=== PATIENT | male | born 1990 | race Hispanic/Latino ===

== ENCOUNTER 2016-12-13 07:02 | Observation (INO) | payer SELFPAY ==
[2016-12-13] MEDS ORDERED: ONDANSETRON HCL 4 MG/2 ML VIAL ONE (07:27)
[2016-12-13] MEDS ORDERED: KETOROLAC TROMETHAMINE 30 MG/ML VIAL ONE (07:27)
[2016-12-13] MEDS ORDERED: HYDROmorphone HCL 1 MG/ML SYR ONE ×3 (07:27→08:43)
--- NOTE | 2016-12-13 08:25 | CT REPORT ---
HISTORY: Acute left flank pain COMPARISON: None. TECHNIQUE: This examination was performed using automated exposure control, adjustment of mA or kV according to patient size, and/or use of iterative reconstruction technique. Axial contiguous images of the abdome n and pelvis were obtained without oral or IV contrast, coronal reformat images also performed. FINDINGS: At the left UVJ there is a small, 2 x 2 mm stone. There is mild hydroureter. There is mild hydronephr osis on the left. There is no perinephric fatty stranding. No renal stones on either side. The unenhanced portions of the liver, gallbladder, pancreas, spleen, and adrenal glands appear normal given the lack of contrast. The lung bases are clear. The bowel is unremarkable given the lack of co ntrast. The appendix is normal. It is located in the midline. There is no free air or free fluid. No adenopathy, free fluid, or free air. There is normal alignment to the lower thoracic and lumbar spine . IMPRESSION: 2 x 2 mm left ureterovesical junction stone causing mild hydroureter and left hydronephrosis. No othe r stones. Final Electronic Signature: This report was electronically signed by Alex Ruiz MD on 12/13/2016 8 :23 AM. pedro /
[2016-12-13] MEDS ORDERED: HOME MEDICATION LIST NEEDED 1 EA EACH MC ONE (08:32)
[2016-12-13] MEDS ORDERED: ONDANSETRON HCL 4 MG/2 ML VIAL IV PRN (08:37)
[2016-12-13] MEDS ORDERED: HYDROmorphone HCL PCA 6 MG/30 ML PCA.VIAL IV PRN (08:41)
[2016-12-13 08:53] LABS: BASOPHIL# 0.1 X 10^3uL (0.0-0.1); BASOPHILS 1.4 % (0.0-2.0); EOSINOPHILS 4.8 % (0.0-6.0); EOSINOPHILS# 0.4 X 10^3uL (0.0-0.4); HEMATOCRIT 49.2 % (42.0-54.0); HEMOGLOBIN 17.2 g/dL (14.0-18.0); MEAN CELL VOLUME 81.9 fL (80.0-100.0); MEAN CORPUS. HGB CONCENTRATION 34.9 g/dL (32.0-36.0); MEAN CORPUSCULAR HEMOGLOBIN 28.6 pg (29.0-35.0); MEAN PLATELET VOLUME 9.9 fL (7.4-10.4); MONOCYTES 8.9 % (2.0-10.0); MONOCYTES# 0.8 X 10^3uL (0.2-1.0); NEUTROPHILS 41.9 % (54.0-75.0); NEUTROPHILS# 3.7 X 10^3uL (2.6-6.7); PLATELET COUNT 301 X 10^3uL (130-440); RED BLOOD COUNT 6.01 X 10^6uL (4.20-6.10); RED CELL DISTRIBUTION WIDTH 14.4 % (11.5-14.5); WHITE BLOOD COUNT 8.9 X 10^3uL (3.9-10.7)
[2016-12-13 09:03] LABS: BLOOD UREA NITROGEN 11 mg/dL (9-20); CALCIUM 9.3 mg/dL (8.4-10.2); CHLORIDE 102 mmol/L (98-107); EST GLOMERULAR FILTRATION RATE > 60 mL/min; GLUCOSE 111 mg/dL (70-100); POTASSIUM 3.2 mmol/L (3.5-5.1); SODIUM 140 mmol/L (137-145)
--- NOTE | 2016-12-13 09:15 | ER PHYSICIAN DOCUMENTATION ---
Physician Documentation [facility] Name:Rohan Cabrera Age:26 yrs Sex:Male :1990 Arrival Date:12/13/2016 Time:07:02 Bed5 Private MD: Seng Aquino Disposition: 12/13 08:49 Chart complete. cd Disposition: 12/13/16 08:31 Admit ordered for Oswaldo Connolly. Preliminary diagnosis is Ureterolithiasis - Renal Colic - : with Intractable Pain. - Bed requested for Medical/Surgical. - Condition is Fair. - Problem is new. - Symptoms are unchanged. 23 HR OBS Yes HPI: 07:15 This 26 yrs old Male presents to ER with complaints of Abdominal Pain - Left. cd 07:15 The patient presents with abdominal pain in the left lower quadrant, and left flank. cd Onset: The symptoms/episode began/occurred acutely, this morning, at 03:00. The symptoms radiate to the left flank. Associated signs and symptoms: Pertinent positives: nausea, Pertinent negatives: diarrhea, dysuria, fever, hematuria, vomiting. The symptoms are described as sharp, waxing/waning. Severity of pain: At its worst the pain was severe in the emergency department the pain is unchanged. The patient has not experienced similar symptoms in the past. 07:21 Risk factors for AAA: none. Risk factors for testicular torsion: none. cd Historical: - Allergies: No known drug Allergies; No known drug Allergies; - Home Meds: 1. None 2. None - PMHx: None; None; - PSHx: None; None; - Ebola Screening: : Patient denies exposure to infectious person. Patient denies travel to an Ebola-affected area in the 21 days before illness onset. . - The history from nurses notes was reviewed: and I agree with what is documented. ROS: 07:16 Cardiovascular: Negative for chest pain, palpitations, edema and pleuritic pain. cd Respiratory: Negative for shortness of breath, dyspnea on exertion, cough, sputum production, wheezing, hemoptysis and pleuritic chest pain. 07:16 : Negative for injury, bleeding, discharge, swelling, dysuria, frequency or urgency. cd 07:16 Constitutional: Positive for poor PO intake, Negative for chills, fever. 07:16 Abdomen/GI: Positive for abdominal pain, nausea, anorexia, Negative for vomiting, diarrhea, abdominal distension, hematemesis, black/tarry stool, rectal bleeding. 07:16 Back: Positive for pain at rest, of the left mid back. 07:16 All other systems are negative. Exam: 07:17 ENT: Nares patent. No nasal discharge, no septal abnormalities noted. Tympanic cd membranes are normal and external auditory canals are clear. Oropharynx with no redness, swelling, or masses, exudates, or evidence of obstruction, uvula midline. Mucous membranes dry Skin: Warm, dry with normal turgor. Normal color with no rashes, no lesions, and no evidence of cellulitis. MS/ Extremity: Pulses equal, no cyanosis. Neurovascular intact. Full, normal range of motion. 07:17 Neuro: Awake and alert, GCS 15, oriented to person, place, time, and situation. Cranial nerves II-XII grossly intact. Motor strength 5/5 in all extremities. Sensory grossly intact. Cerebellar exam normal. Normal gait. 07:17 Constitutional: The patient appears alert, awake, non-diaphoretic, non-toxic, well developed, well nourished, anxious, in obvious distress, severely distressed. 07:17 Cardiovascular: Rate: normal, Rhythm: regular, Pulses: no pulse deficits are appreciated, Heart sounds: normal. 07:17 Respiratory: the patient does not display signs of respiratory distress, Respirations: normal, no acute changes, Breath sounds: are normal, clear throughout. 07:17 Abdomen/GI: Inspection: abdomen appears normal, Bowel sounds: normal, Palpation: severe abdominal tenderness, in the posterior aspect of left lateral abdomen, left upper quadrant and left lower quadrant, Rectal exam: the exam is deferred, Indicators: McBurney's point is not tender, Phan's sign is negative. 07:17 Back: pain, that is severe, of the left mid back, CVA tenderness, that is severe, is noted on the left. 07:17 : CVA tenderness, on the left, Rectal exam: is not applicable. Vital Signs: 07:04 BP 127 / 78; Pulse 77; Pulse Ox 97% on R/A; Pain 10/10; rh 07:33 Pain 2/10; rh 08:00 BP 130 / 86; Pulse 59; Pulse Ox 96% on 2 lpm NC; rh 08:02 Pain 9/10; rh 08:19 Pain 0/10; rh 08:30 BP 136 / 94; Pulse 80; Pulse Ox 95% ; rh 09:00 BP 110 / 66; rh MDM: 07:10 Patient medically screened. 07:15 Data interpreted: Pulse oximetry: on room air is 97 %. Interpretation: normal. 07:19 Differential diagnosis: Pyelonephritis, Ureterolithiasis, urinary tract infection. 07:20 Data reviewed: vital signs, nurses notes, old medical records, and as a result, I will cd continue to observe the patient, administer IV fluids, NS bolus, NS maintenence, prescribe pain medication, Dilaudid, Toradol. 08:46 Counseling: I had a detailed discussion with the patient and/or guardian regarding: the cd historical points, exam findings, and any diagnostic results supporting the discharge/admit diagnosis, lab results, radiology results, the need for further work-up and treatment in the hospital. 08:49 Response to treatment: the patient's symptoms have mildly improved after treatment, cd pain continues to recur in spite of IV Dilaudid boluses. He has a 2 mm obstructing urolith at the left UVJ with mild hydronephrosis. He will require admission for pain control.. Physician consultation: Oswaldo Connolly MD was called at 08:45, was contacted at 08:46, regarding admission, to the floor, consult, patient's condition, need to evaluate the patient as soon as possible, and will see patient in inpatient room, shortly, later today. Admission orders: after a detailed discussion of the patient's condition and case, the admit orders are written by me. 12/13 09:05 Order name: BASIC METABOLIC PANEL; Complete Time: 09:29 EDMS 12/13 09:19 Interpretation: Normal Except: POTASSIUM 3.2; GLUCOSE 111; Hypokalemia. 12/13 09:06 Order name: CBC AUTO DIF, MDIF/RMOR IF IND; Complete Time: 09:29 EDMS 12/13 09:19 Interpretation: Normal. 12/13 08:28 Order name: CAT SCAN; ABD/[place] [id number]; Complete Time: 09:29 EDMS 12/13 09:19 Interpretation: Abnormal: See Report. 12/13 07:11 Order name: I & O; Complete Time: 07:34 12/13 07:11 Order name: NPO; Complete Time: 07:34 12/13 07:11 Order name: Pulse Ox Continuous; Complete Time: 07:34 12/13 07:11 Order name: Urine Strainer 12/13 07:40 Order name: Oxygen; Complete Time: 07:40 rh Dispensed Medications: 07:22 Drug: NS 0.9% 1000 ml; Route: IV; Rate: bolus; Site: right antecubital; rh 08:30 Follow up: IV Status: Completed infusion; IV Intake: 1000ml rh 07:22 Drug: Dilaudid 1 mg; Route: IVP; Site: right antecubital; rh 07:33 Follow up: Response: Pain is decreased rh 07:22 Drug: Toradol 30 mg; Route: IVP; Site: right antecubital; rh 07:33 Follow up: Response: Pain is decreased rh 07:22 Drug: Zofran 4 mg; Route: IVP; Infused Over: 2 mins; Site: right antecubital; rh 07:34 Follow up: Response: Pain is decreased rh 08:02 Drug: Dilaudid 1 mg; Route: IVP; Site: right antecubital; rh 08:20 Follow up: Response: Pain is decreased rh 08:30 Drug: NS 0.9% 1000 ml; Route: IV; Rate: bolus; Site: right antecubital; rh 09:13 Follow up: IV Status: Completed infusion; IV Intake: 1000ml rh 08:34 Drug: Dilaudid 0.5 mg; Route: IVP; Site: right antecubital; rh 09:13 Follow up: Response: Pain is decreased rh Point of Care Testing: Urine Dip: 07:31 pH: 5.5; ; Specific [place]: 1.030; Ketones: Negative; Glucose: Negative; Protein: rh Positive (+); Leukocytes: Negative; Nitrite: Negative ; Blood: Moderate (++); Bilirubin: Negative ; Urobilinogen: Normal Signatures: Seng Robles MD MD cd Hofsess, Rachel
--- NOTE | 2016-12-13 09:15 | ER NURSING DOCUMENTATION ---
Nurse's Notes [facility] Name:Rohan Cabrera Age:26 yrs Sex:Male :1990 Arrival Date:12/13/2016 Time:07:02 Bed5 Private MD: Diagnosis:Ureterolithiasis - Renal Colic-: with Intractable Pain Presentation: 12/13 07:04 Presenting complaint: Patient states: pt has had left flank pain since 3 AM. pt is rh passing in room. Transition of care: patient was not received from another setting of care. 07:04 Method Of Arrival: Private Vehicle rh 07:11 Acuity: [place] 2 rh Triage Assessment: 07:04 General: Appears uncomfortable, Behavior is cooperative. Pain: Complains of pain in rh anterior aspect of left lateral abdomen, posterior aspect of left lateral abdomen and left lower quadrant Pain currently is 10 out of 10 on a pain scale. Pain began 4 hours ago. Cardiovascular: No deficits noted. Respiratory: No deficits noted. GI: Abdomen is non- distended Abd is soft X 4 quads Abdomen is tender to palpation in anterior aspect of left lateral abdomen, posterior aspect of left lateral abdomen and left lower quadrant. : Denies burning with urination, urinary frequency, pt states he feels like he has to defecate but can not. Historical: - Allergies: No known drug Allergies; No known drug Allergies; - Home Meds: 1. None 2. None - PMHx: None; None; - PSHx: None; None; - Ebola Screening: : Patient denies exposure to infectious person. Patient denies travel to an Ebola-affected area in the 21 days before illness onset. . - The history from nurses notes was reviewed: and I agree with what is documented. Screenin:40 Abuse screen: Denies threats or abuse. Denies injuries from another. Nutritional rh screening: No deficits noted. Assessment: 08:02 General: pt is moaning again. . rh 13:19 General: All nursing charting done by Roseann martin Vital Signs: 07:04 BP 127 / 78; Pulse 77; Pulse Ox 97% on R/A; Pain 10/10; rh 07:33 Pain 2/10; rh 08:00 BP 130 / 86; Pulse 59; Pulse Ox 96% on 2 lpm NC; rh 08:02 Pain 9/10; rh 08:19 Pain 0/10; rh 08:30 BP 136 / 94; Pulse 80; Pulse Ox 95% ; rh 09:00 BP 110 / 66; rh ED Course: 07:04 Patient arrived in ED. lm3 07:04 Valuables Remains with patient Patient has correct armband on for positive rh identification. Placed in gown. Bed in low position. Pulse ox on. 07:09 Roseann Saenz RN is Primary Nurse. st 07:10 Seng Robles MD is Attending Physician. cd 07:11 Triage completed. rh 07:22 Inserted peripheral IV: 20 gauge in right antecubital area and blood collected. rh 07:31 Urine collected. Voided. rh 07:40 Oxygen Oxygen administration via nasal cannula @ 2L/min. rh 08:[address] ms 08:[address] ms 08:30 Oswaldo Connolly MD is Admitting Physician. cd Administered Medications: 07:22 Drug: NS 0.9% 1000 ml; Route: IV; Rate: bolus; Site: right antecubital; rh 08:30 Follow up: IV Status: Completed infusion; IV Intake: 1000ml rh 07:22 Drug: Dilaudid 1 mg; Route: IVP; Site: right antecubital; rh 07:33 Follow up: Response: Pain is decreased rh 07:22 Drug: Toradol 30 mg; Route: IVP; Site: right antecubital; rh 07:33 Follow up: Response: Pain is decreased rh 07:22 Drug: Zofran 4 mg; Route: IVP; Infused Over: 2 mins; Site: right antecubital; rh 07:34 Follow up: Response: Pain is decreased rh 08:02 Drug: Dilaudid 1 mg; Route: IVP; Site: right antecubital; rh 08:20 Follow up: Response: Pain is decreased rh 08:30 Drug: NS 0.9% 1000 ml; Route: IV; Rate: bolus; Site: right antecubital; rh 09:13 Follow up: IV Status: Completed infusion; IV Intake: 1000ml rh 08:34 Drug: Dilaudid 0.5 mg; Route: IVP; Site: right antecubital; rh 09:13 Follow up: Response: Pain is decreased rh Point of Care Testing: Urine Dip: 07:31 pH: 5.5; ; Specific [place]: 1.030; Ketones: Negative; Glucose: Negative; Protein: rh Positive (+); Leukocytes: Negative; Nitrite: Negative ; Blood: Moderate (++); Bilirubin: Negative ; Urobilinogen: Normal Intake: 08:30 IV: 1000ml; Total: 1000ml. rh 09:13 IV: 1000ml; Total: 2000ml. rh Outcome: 08:31 Decision to Admit by Provider. cd 09:14 Admitted to Med/surg accompanied by nurse, via stretcher, with oxygen. rh 09:14 Condition: stable 09:14 Report given to Nadiya RN 09:14 Instructed on need to admit 09:14 Patient left the ED. Signatures: Roseann Saenz, Seng Caro RN, MD MD cd Strickland, Mary ms Hofsess, Rachel Gwendolyn Pemberton
[2016-12-13] MEDS: NORMAL SALINE 1,000 ML IV SCH ×2 (09:43→17:08)
[2016-12-13] MEDS ORDERED: MORPHINE SULFATE 2 MG/ML SYR IV PRN (11:28)
[2016-12-13] MEDS: NALOXONE HCL 0.4 MG/ML VIAL IV PRN ×2 (11:37→11:57)
[2016-12-13] MEDS ORDERED: KETOROLAC TROMETHAMINE 30 MG/ML VIAL IV PRN (13:00)
[2016-12-13] MEDS: POTASSIUM CHLORIDE ER 10 MEQ TABLET PO SCH (13:24)
[2016-12-13] MEDS: TAMSULOSIN HCL 0.4 MG CAPSULE PO SCH (16:41)
[2016-12-13] MEDS ORDERED: NAPROXEN 250 MG TABLET PO SCH (17:30)
[2016-12-13 23:16] VITALS: BP 126/76; TEMP 98; O2SAT 95
[2016-12-14 02:38] VITALS: PULSE 70; RESP 14
[2016-12-14] MEDS: NORMAL SALINE 1,000 ML IV SCH (06:00)
[2016-12-14] MEDS ORDERED: DOCUSATE SODIUM 100 MG CAPSULE PO ONE (06:08)
[2016-12-14] MEDS ORDERED: NAPROXEN 250 MG TABLET PO ONE (06:08)
[2016-12-14] MEDS ORDERED: NAPROXEN 250 MG TABLET PO SCH (07:30)
--- NOTE | 2016-12-14 07:44 | HISTORY & PHYSICAL ---
DATE OF ADMISSION: 12/13/16 ATTENDING PHYSICIAN: Oswaldo Connolly MD HISTORY OF PRESENT ILLNESS: This previously healthy 26-year-old gentleman developed some intermittent left lower quadrant and left flank pain yesterday afternoon. It was tolerable until 3:00 a.m. this morning when it became very severe. It was associated with some nausea but no vomiting, fever or diarrhea. He had no gross hematuria, but when he came to the Emergency Department this morning, he was found to have a 2 mm left ureteral stone at the UPJ. He did not get adequate relief with a total of 2 mg of IV Dilaudid in the Emergency Department so was admitted for pain control. PAST MEDICAL HISTORY: Generally healthy. No chronic illnesses. MEDICATIONS: None. ALLERGIES: No known drug allergies. 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 He lives in [facility]. During the work here, he is staying at the [facility] with a roommate who speaks Swazi who accompanied the patient today. PHYSICAL EXAMINATION VITAL SIGNS: Blood pressure 120/89, pulse 66, respiratory rate 14 and O2 saturation 95% on 2 liters. His temperature is not recorded yet. GENERAL: When I evaluated him he was pain free, but had been in great distress in the Emergency Department. He was alert and oriented x3. HEENT: Oral mucosa was moist. LUNGS: Clear/ HEART: Regular rate and rhythm with no murmur. ABDOMEN: Soft, nontender. BACK: No costovertebral angle tenderness of flank tenderness. EXTREMITIES: Without edema. LABORATORY DATA: Initial white count was 8,900 with 42% neutrophils and 43% lymphs. Hemoglobin was 17. Hematocrit 49 and platelets 301,000. Sodium was 140 , potassium 3.2 and chloride 102. CO2 was 23 and his creatinine was 1.0. IMAGING: Patients CT of the abdomen and pelvis showed a 2 mm left UVJ ureteral stone with some mild hydroureter and left hydronephrosis. No other stones or abnormalities. IMPRESSION 1. Two millimeter left ureteral stone with intractable pain initially. Doing better after admission initially, but then had a flare in the late afternoon. 2. Hypokalemia of uncertain etiology. PLAN: I placed the patient on Tamsulosin 0.4 mg daily and getting him IV fluids. Initially he became too sedated with the Dilaudid and required Narcan. His Dilaudid [employer] was stopped then, and he is now using either IV Morphine 1 mg q.hour PRN and/or Oxycodone 5 mg p.o. This is being supplemented with Aleve 500 mg p.o. b.i.d. He received Toradol in the Emergency Department and it was not much help. We are straining his urine. It is likely that he should be able to pass the stone on his own. If his pain can be adequately controlled tomorrow on the Oxycodone I will send him out on that. CAROL
[2016-12-14] MEDS ORDERED: POLYETHYLENE GLYCOL 3350 17 GM POWD.PACK PO PRN (08:05)
[2016-12-14] MEDS: TAMSULOSIN HCL 0.4 MG CAPSULE PO SCH (08:34)
[2016-12-14] MEDS: POTASSIUM CHLORIDE ER 10 MEQ TABLET PO SCH (08:34)
--- NOTE | 2016-12-14 12:53 | DC SUMMARY: IM Note ---
Discharge Summary: IM/Peds Provider: Date of Admission: 12/13/16 Admitting Provider: CURTIS ROCHA MD Attending Provider: CURTIS ROCHA MD Discharging Provider: CURTIS ROCHA MD Primary Care Provider: Discharge Date: 12/14/16 - Diagnosis (1) Left ureteral calculus Status: Acute (2) Hydroureter Status: Acute (3) Hydronephrosis Status: Acute Hospital Course: This patient was admitted yesterday with intractable left ureteral colic. The initial episode could not be controlled in the ED despite 2 mg of Dilaudid. He then became pain-free in the afternoon, but had a recurrence in the evening which was controlled with 1 mg of morphine plus Toradol IV. Since then his pain has been well controlled are absent with a combination of naproxen 500 mg p.o. twice daily, and tamsulosin 0.4 mg daily. He will continue on those medications, plus some as needed ondansetron if he develops nausea (4 mg ODT every 6 hours as needed). He will strain his urine and follow-up with me next week. - Time Spent with Patient Total time spent providing and/or coordinating discharge services: Discharge - Patient/Caregiver Discharge Instructions Activity Level: as tolerated Diet: regular Additional Instructions: Strain urine. See handout in [place]. Follow up: CURTIS ROCHA MD [ACTIVE (Staff Physician)] - 12/19/16 11:40 am Print Language: TRINIDADIAN Home Medications: Tamsulosin HCl [Flomax*] 0.4 mg PO DAILY #5 cap oxyCODONE HCL IR [Oxy Ir*] 5 mg PO Q3H PRN #15 tablet PRN Reason: Pain, Severe Able To Take Po Disposition: HOME, SELF-CARE Discharge Summary Data - Medication History Medication History: Home Medications Docusate Sodium [Colace*] 100 mg PO BID 5 Days 12/14/16 Naproxen [Naprosyn*] 500 mg PO BID@0730,1730 tablet 12/14/16 Tamsulosin HCl [Flomax*] 0.4 mg PO DAILY #5 cap 12/14/16 oxyCODONE HCL IR [Oxy Ir*] 5 mg PO Q3H PRN #15 tablet 12/14/16 Procedures and tests throughout hospitalization: Pending Orders 12/13/16 13:27 Advance diet as tolerated . 12/13/16 13:40 Vital Signs ROUTINE VITALS (Q4H) 12/14/16 09:05 Discharge ONCE IM: Discharge Physical Exam - I&O/Vital Signs I&O: Intake & Output 12/13/16 12/14/16 12/14/16 21:59 05:59 13:59 Intake Total 1540 520 Output Total 1400 1750 Balance 140 -1230 Weight 95.5 kg Intake: IV 1300 Right Antecubital 1300 Oral 240 520 Output: Urine 1400 1750 Other: Urine Appearance Clear Clear Clear Urine Color Yellow Yellow Yellow Voiding Method Urinal Urinal Urinal # Voids 1 Vital Signs: Last Vital Signs Temp 36.7 C 12/14/16 02:37 Pulse 70 12/14/16 02:37 Resp 14 12/14/16 09:00 BP 126/76 12/13/16 23:00 Pulse Ox 95 12/14/16 09:00 Oxygen Flow Rate 1 Oxygen Delivery Method Room Air - Constitutional General appearance: Present: average body habitus, cooperative - ENT ENT exam: Present: mucous membranes moist - Respiratory Respiratory exam: Present: clear - Cardiovascular Cardiovascular exam: Present: RRR. Absent: systolic murmur - GI/Abdominal GI/Abdominal exam: Present: normal bowel sounds, soft. Absent: tenderness - Extremities Exam Extremities exam: Absent: tenderness - Back Exam Back exam: Absent: CVA tenderness (L), CVA tenderness (R) - Allied Health Notes Allied health notes reviewed: nursing
[2016-12-14] MEDS ORDERED: DOCUSATE SODIUM 100 MG CAPSULE PO SCH (21:00)
[2016-12-18 15:39] LABS: LYMPHOCYTES# 3.9 X 10^3uL (0.8-3.8)
== END 2016-12-14 10:04 | disposition home or self-care (01) ==
LOC: ER 07:02 → IN 09:10
PROVIDERS: ADMIT Family Medicine; ATTEND Family Medicine
DX: N13.2 Hydronephrosis with renal and ureteral calculous obstruction (principal); E87.6 Hypokalemia
CPT/HCPCS: 74176; 80048; 85025; 93041; 96361; 96374; 96375; 96376; 99285; G0378; J1170; J1885; J2270; J2405; J7030